=== PATIENT | female | born 1945 | race Caucasian/White ===

== ENCOUNTER 2017-04-25 09:57 | Emergency (ER) | payer MEDICARE ==
[~2017-04-25] VITALS: Ht 165.1 cm; Wt 88.9 kg
[~2017-04-25 09:57] MED LIST: ACEBUTOLOL HCL200 MG PO; ASPIRIN81 M1 PO; MAXIMUM DAILY1 EACH PO; ULTRAM50 MG PO; ZESTORETIC 20-1 EACH PO
[2017-04-25] MEDS ORDERED: SODIUM CHLORIDE 0.9% 1000ML 1,000 ML IV STA (11:00)
[2017-04-25] MEDS ORDERED: ONDANSETRON HCL INJ 2 MG/ML VIAL IV STA (11:00)
[2017-04-25 12:16] LABS: BASOPHILS % 0.4 % (0.0-1.0); EOSINOPHILS % 0.6 % (0.0-6.0); HEMATOCRIT 43.8 % (34.2-44.1); HEMOGLOBIN 14.7 g/dL (12.0-16.0); LYMPHOCYTES # (AUTO) 0.9 (1.0-3.2); LYMPHOCYTES % 12.2 % (18.0-39.1); MEAN CORPUSCULAR HEMOGLOBIN 30.9 pg (28-32); MEAN CORPUSCULAR HGB CONC 33.6 g/dL (31-35); MEAN CORPUSCULAR VOLUME 92.2 fL (81-99); MONOCYTES # (AUTO) 0.6 (0.2-0.8); NEUTROPHILS # (AUTO) 5.7 (2.1-6.9); NEUTROPHILS % 78.2 % (38.7-80.0); PLATELET COUNT 261 x10e3/uL (140-360); RED BLOOD COUNT 4.75 x10e6/uL (3.6-5.1); RED CELL DISTRIBUTION WIDTH 12.5 % (11.7-14.4)
[2017-04-25 12:18] LABS: BILIRUBIN,URINE NEGATIVE (NEGATIVE); KETONES,URINE NEGATIVE (NEGATIVE); LEUKOCYTE ESTERASE ,URINE NEGATIVE (NEGATIVE); NITRITE,URINE NEGATIVE (NEGATIVE); URINE UROBILINOGEN 0.2 mg/dL (0.2 - 1)
[2017-04-25 12:21] LABS: CLARITY,URINE SL CLOUDY (CLEAR); COLOR,URINE YELLOW (YELLOW); PROTEIN,URINE DIPSTICK 1+ (NEGATIVE)
[2017-04-25 12:25] LABS: ALANINE AMINOTRANSFERASE 18 IU/L (0-55); ALBUMIN 3.8 g/dL (3.5-5.0); ALBUMIN/GLOBULIN RATIO 1.1 (0.8-2.0); ALKALINE PHOSPHATASE 82 IU/L (40-150); ANION GAP 14.2 mmol/L (8-16); BLOOD UREA NITROGEN 18 mg/dL (7-26); BUN/CREATININE RATIO 20 (6-25); CALCIUM 9.1 mg/dL (8.4-10.2); CARBON DIOXIDE 24 mmol/L (22-29); CHLORIDE 100 mmol/L (98-107); CREATININE, SERUM 0.91 mg/dL (0.57-1.11); EST GLOMERULAR FILTRATION RATE > 60 ML/MIN (60-); GLUCOSE 171 mg/dL (74-118); LIPASE 33 U/L (8-78); POTASSIUM 3.2 mmol/L (3.5-5.1); SODIUM 135 mmol/L (136-145)
--- NOTE | 2017-04-25 12:29 | Diagnostic Imaging Report ---
PROCEDURE: Frontal and lateral views of the chest. COMPARISON: Patients [facility], , CHEST SINGLE (PORTABLE), 07/16/2016, 17:52. INDICATIONS: COUGH FINDINGS: Lines/tubes: None. Lungs: The lungs are well inflated and clear. There is no evidence of pneumonia or pulmonary edema. Pleura: There is no pleural effusion or pneumothorax. Heart and mediastinum: The heart and the mediastinum are normal. Bones: No acute bony abnormality. IMPRESSION: 1. No acute cardiopulmonary abnormalities. Sánchez Jules M.D. Dictated by: Sánchez Jules M.D. on 04/25/2017 at 12:38 Electronically approved by: Sánchez Jules M.D. on 04/25/2017 at 12:38
[2017-04-25 12:35] LABS: EPITHELIAL CELLS,URINE RARE /LPF; RBC,URINE 0-5 /HPF (0-5)
[2017-04-25 12:36] LABS: MUCUS,URINE RARE (RARE)
[2017-04-25 12:39] LABS: CREATINE KINASE MB 0.7 ng/mL (0.00-5.00); TROPONIN I 0.002 ng/mL (0-0.300)
[2017-04-25] MEDS ORDERED: ZOFRAN4 MG SL (13:45)
[2017-04-25 14:09] VITALS: BP 151/88
== END 2017-04-25 14:30 | disposition home or self-care (01) ==
LOC: ER 09:57
DX: R50.9 Fever, unspecified (principal); R05 Cough; R11.2 Nausea with vomiting, unspecified; R19.7 Diarrhea, unspecified; K52.9 Noninfective gastroenteritis and colitis, unspecified; I10 Essential (primary) hypertension; I48.91 Unspecified atrial fibrillation
CPT/HCPCS: 36415; 71020; 80053; 81001; 82550; 82553; 83690; 84484; 85025; 87400; 93005; 99284; J2405; J7030

== ENCOUNTER → 2017-12-05 | Outpatient (CLI) | payer MEDICARE ==
[~2017-12-05] MED LIST changes: +ZOFRAN4 MG SL
--- NOTE | 2017-12-05 15:40 | Diagnostic Imaging Report ---
EXAM: SINUSES (PARANASAL)MIN 3VIEWS DATE: 12/05/2017 3:03 PM INDICATION: Fall. Left facial/sinus pain. COMPARISON: None FINDINGS: Visualized maxillary, left frontal, and ethmoid sinuses as well as mastoid air cells are clear. No significant mucosal thickening or air-fluid level identified. IMPRESSION: No distinct sinus disease. If concern is present for facial fracture, maxillofacial CT would be recommended. Signed by: Dr. Yang Pratt MD on 12/05/2017 3:37 PM
== END ==
LOC: RAD 14:43
PROVIDERS: ATTEND Family Medicine
DX: R52 Pain, unspecified (principal); W18.39XA Other fall on same level, initial encounter
CPT/HCPCS: 70220

== ENCOUNTER 2020-03-28 08:19 | Emergency (ER) | payer MEDICARE, OTHER ==
[~2020-03-28] VITALS: Ht 165.1 cm; Wt 88.9 kg
[2020-03-28] MEDS ORDERED: KETOROLAC TROMETHAMINE 30 MG/ML VIAL IV STA (08:37)
[2020-03-28 09:04] LABS: BASOPHILS % 0.3 % (0.0-1.0); EOSINOPHILS # (AUTO) 0.2 (0.0-0.4); EOSINOPHILS % 1.4 % (0.0-6.0); HEMATOCRIT 44.3 % (34.2-44.1); HEMOGLOBIN 14.5 g/dL (12.0-16.0); LYMPHOCYTES # (AUTO) 1.6 (1.0-3.2); LYMPHOCYTES % 12.8 % (18.0-39.1); MEAN CORPUSCULAR HEMOGLOBIN 30.9 pg (28-32); MEAN CORPUSCULAR HGB CONC 32.7 g/dL (31-35); MEAN CORPUSCULAR VOLUME 94.3 fL (81-99); MONOCYTES # (AUTO) 0.8 (0.2-0.8); MONOCYTES % 6.1 % (4.4-11.3); NEUTROPHILS # (AUTO) 9.8 (2.1-6.9); NEUTROPHILS % 78.9 % (38.7-80.0); PLATELET COUNT 277 x10e3/uL (140-360); RED CELL DISTRIBUTION WIDTH 12.6 % (11.7-14.4)
[2020-03-28 09:09] LABS: CLARITY,URINE CLEAR (CLEAR); COLOR,URINE YELLOW (YELLOW); LEUKOCYTE ESTERASE ,URINE TRACE (NEGATIVE)
[2020-03-28 09:10] LABS: KETONES,URINE NEGATIVE (NEGATIVE); NITRITE,URINE NEGATIVE (NEGATIVE); PROTEIN,URINE DIPSTICK TRACE (NEGATIVE); URINE UROBILINOGEN 0.2 mg/dL (0.2 - 1)
[2020-03-28] MEDS ORDERED: SODIUM CHLORIDE 0.9% 50ML 50 ML ONE (09:15)
[2020-03-28 09:16] LABS: BACTERIA,URINE RARE /HPF; EPITHELIAL CELLS,URINE FEW /LPF
[2020-03-28] MEDS ORDERED: IOPAMIDOL 370 MG/ML 200 ML INFUS..BTL INJ ONE (09:16)
[2020-03-28 09:26] LABS: ALBUMIN 4.2 g/dL (3.5-5.0); ALBUMIN/GLOBULIN RATIO 1.2 (0.8-2.0); ANION GAP 15.4 mmol/L (8-16); CALCIUM 9.4 mg/dL (8.4-10.2); CREATININE, SERUM 0.99 mg/dL (0.57-1.11); POTASSIUM 3.4 mmol/L (3.5-5.1)
[2020-03-28] MEDS ORDERED: SODIUM CHLORIDE 0.9% 500ML 500 ML IV STA (09:29)
[2020-03-28] MEDS ORDERED: ULTRAM50 MG PO (11:10)
== END 2020-03-28 11:20 | disposition home or self-care (01) ==
LOC: ER 08:25
DX: R10.9 Unspecified abdominal pain (principal); K57.30 Diverticulosis of large intestine without perforation or abscess without bleeding; I48.92 Unspecified atrial flutter; I10 Essential (primary) hypertension; I48.91 Unspecified atrial fibrillation
CPT/HCPCS: 36415; 74177; 80053; 81001; 83690; 85025; 93005; 99283; J1885; J7040; Q9967

== ENCOUNTER 2021-06-10 10:46 | Observation (INO) | payer MEDICARE ==
[~2021-06-10] VITALS: Ht 152.4 cm; Wt 76.7 kg
[2021-06-10] MEDS ORDERED: DILTIAZEM HCL 5 MG/ML 5 ML VIAL IV ONE (11:15)
[2021-06-10] MEDS ORDERED: DILTIAZEM HCL VIAL 5 ML ONE (11:26)
[2021-06-10 11:30] LABS: BASOPHILS # (AUTO) 0.1 (0.0-0.1); BASOPHILS % 0.8 % (0.0-1.0); EOSINOPHILS # (AUTO) 0.2 (0.0-0.4); EOSINOPHILS % 2.7 % (0.0-6.0); HEMATOCRIT 44.9 % (34.2-44.1); HEMOGLOBIN 14.8 g/dL (12.0-16.0); LYMPHOCYTES # (AUTO) 1.6 (1.0-3.2); LYMPHOCYTES % 25.3 % (18.0-39.1); MEAN CORPUSCULAR HEMOGLOBIN 31.2 pg (28-32); MEAN CORPUSCULAR VOLUME 94.5 fL (81-99); MONOCYTES # (AUTO) 0.4 (0.2-0.8); MONOCYTES % 6.7 % (4.4-11.3); NEUTROPHILS % 64.2 % (38.7-80.0); PLATELET COUNT 267 x10e3/uL (140-360); RED BLOOD COUNT 4.75 x10e6/uL (3.6-5.1); RED CELL DISTRIBUTION WIDTH 12.9 % (11.7-14.4)
[2021-06-10 11:41] LABS: INR 0.97; PROTHROMBIN TIME 13.8 seconds (11.9-14.5)
[2021-06-10 11:42] LABS: PARTIAL THROMBOPLASTIN TIME 27.4 seconds (23.8-35.5)
[2021-06-10 11:51] LABS: ALBUMIN/GLOBULIN RATIO 1.2 (0.8-2.0); ANION GAP 13.7 mmol/L (8-16); CALCIUM 9.7 mg/dL (8.4-10.2); CREATININE, SERUM 0.87 mg/dL (0.57-1.11); POTASSIUM 3.7 mmol/L (3.5-5.1)
[2021-06-10] MEDS ORDERED: ENOXAPARIN INJ 80 MG/0.8 ML SYR SC SCH (12:00)
[2021-06-10] MEDS ORDERED: ASPIRIN 81 MG CHEW TAB PO ONE (12:00)
[2021-06-10] MEDS ORDERED: ASPIRIN 81 MG CHEW TAB ONE ×2 (12:10→12:11)
[2021-06-10] MEDS ORDERED: ACETAMINOPHEN 325 MG TAB PO PRN (14:30)
[2021-06-10] MEDS ORDERED: METOPROLOL TARTRATE INJ 1 MG/ML VIAL IV PRN (14:30)
[2021-06-10] MEDS ORDERED: ONDANSETRON HCL INJ 2MG/ML 2ML 2 MG/ML VIAL IV PRN (14:30)
[2021-06-10] MEDS ORDERED: POLYETHYLENE GLYCOL 3350 17 GM PACK PO PRN (14:30)
[2021-06-10 15:24] VITALS: BP 138/94
[2021-06-10] MEDS ORDERED: ASPIRIN81 MG PO (15:55)
[2021-06-10] MEDS: FAMOTIDINE 20 MG TAB PO SCH (16:21)
[2021-06-10] MEDS: DOCUSATE SODIUM 100 MG CAP PO SCH (16:21)
[2021-06-10] MEDS: METOPROLOL SUCCINATE 25 MG TAB XL PO SCH (16:29)
[2021-06-10 16:36] VITALS: BP 138/94
[2021-06-10 16:55] VITALS: BP 138/94
[2021-06-10] MEDS ORDERED: LISINOPRIL-HCT1 EAC2 PO (17:35)
[2021-06-10 20:00] VITALS: BP 141/71
[2021-06-10] MEDS: APIXABAN 5 MG TABLET PO SCH (20:59)
[2021-06-11] VITALS: BP 131/82
[2021-06-11 04:00] VITALS: BP 129/79
[2021-06-11] MEDS: METOPROLOL SUCCINATE 25 MG TAB XL PO SCH (05:27)
[2021-06-11 06:06] LABS: BASOPHILS # (AUTO) 0.1 (0.0-0.1); EOSINOPHILS # (AUTO) 0.2 (0.0-0.4); EOSINOPHILS % 2.9 % (0.0-6.0); HEMATOCRIT 44.1 % (34.2-44.1); HEMOGLOBIN 14.7 g/dL (12.0-16.0); LYMPHOCYTES # (AUTO) 1.9 (1.0-3.2); LYMPHOCYTES % 32.1 % (18.0-39.1); MEAN CORPUSCULAR HEMOGLOBIN 31.3 pg (28-32); MEAN CORPUSCULAR HGB CONC 33.3 g/dL (31-35); MONOCYTES # (AUTO) 0.5 (0.2-0.8); MONOCYTES % 8.1 % (4.4-11.3); NEUTROPHILS # (AUTO) 3.2 (2.1-6.9); NEUTROPHILS % 55.6 % (38.7-80.0); PLATELET COUNT 263 x10e3/uL (140-360); RED BLOOD COUNT 4.69 x10e6/uL (3.6-5.1); RED CELL DISTRIBUTION WIDTH 12.9 % (11.7-14.4)
[2021-06-11 06:27] LABS: ANION GAP 12.7 mmol/L (8-16); CALCIUM 9.4 mg/dL (8.4-10.2); CHOL/HDL RATIO 3.9 (3.0-3.6); CREATININE, SERUM 0.87 mg/dL (0.57-1.11); MAGNESIUM 1.9 MG/DL (1.3-2.1); PHOSPHORUS 2.7 MG/DL (2.3-4.7); POTASSIUM 3.7 mmol/L (3.5-5.1)
[2021-06-11 06:36] LABS: CREATINE KINASE MB 0.8 ng/mL (0-5.0)
[2021-06-11 06:49] LABS: THYROID STIMULATING HORMONE 0.956 uIU/mL (0.350-4.940)
[2021-06-11] MEDS: FAMOTIDINE 20 MG TAB PO SCH ×2 (07:30→16:25)
[2021-06-11 07:49] VITALS: BP 129/76
[2021-06-11 08:00] VITALS: BP 129/76
[2021-06-11] MEDS ORDERED: LISINOPRIL 10 MG TAB PO SCH (09:00)
[2021-06-11] MEDS ORDERED: METOPROLOL SUCCINATE 25 MG TAB XL PO SCH (09:00)
[2021-06-11] MEDS: APIXABAN 5 MG TABLET PO SCH ×2 (09:49→16:25)
[2021-06-11] MEDS: DOCUSATE SODIUM 100 MG CAP PO SCH (09:49)
[2021-06-11 12:11] VITALS: BP 128/81
[2021-06-11] MEDS ORDERED: METOPROLOL SUCC25 MG PO (15:57)
[2021-06-11] MEDS ORDERED: ELIQUIS5 MG PO (15:57)
[2021-06-11 16:21] VITALS: BP 121/69
== END 2021-06-11 16:35 | disposition home or self-care (01) ==
LOC: ER 11:27 → ERHOLD 12:26 → INTOOBSV 12:26 → MED/SURG2 15:46
PROVIDERS: ADMIT Internal Medicine; ATTEND Internal Medicine
DX: I48.0 Paroxysmal atrial fibrillation (principal); I11.9 Hypertensive heart disease without heart failure; Z79.01 Long term (current) use of anticoagulants; E66.9 Obesity, unspecified; Z68.32 Body mass index [BMI] 32.0-32.9, adult; Z20.822 Contact with and (suspected) exposure to COVID-19
CPT/HCPCS: 36415 ×2; 71045; 80048; 80053; 80061; 82550 ×2; 82553 ×2; 83036; 83735; 83880; 84100; 84443; 84484 ×2; 85025 ×2; 85610; 85730; 93005 ×2; 93306; 94799 ×2; 99284; G0378 ×2; J1650; J2405; U0002

== ENCOUNTER 2021-06-26 20:17 | Emergency (ER) | payer MEDICARE ==
[~2021-06-26] VITALS: Ht 160 cm; Wt 76.7 kg
[~2021-06-26 20:17] MED LIST changes: +ASPIRIN81 MG PO; +ELIQUIS5 MG PO; +LISINOPRIL-HCT1 EAC2 PO; +METOPROLOL SUCC25 MG PO
[2021-06-26] MEDS ORDERED: ONDANSETRON HCL INJ 2MG/ML 2ML 2 MG/ML VIAL IV STA (20:56)
[2021-06-26 21:30] LABS: COLOR,URINE RED (YELLOW)
[2021-06-26 21:31] LABS: CLARITY,URINE CLOUDY (CLEAR)
[2021-06-26 21:34] LABS: BASOPHILS # (AUTO) 0.1 (0.0-0.1); BASOPHILS % 0.6 % (0.0-1.0); EOSINOPHILS # (AUTO) 0.2 (0.0-0.4); EOSINOPHILS % 2.8 % (0.0-6.0); HEMATOCRIT 38.6 % (34.2-44.1); HEMOGLOBIN 12.4 g/dL (12.0-16.0); LYMPHOCYTES # (AUTO) 1.5 (1.0-3.2); LYMPHOCYTES % 19.4 % (18.0-39.1); MEAN CORPUSCULAR HEMOGLOBIN 30.3 pg (28-32); MEAN CORPUSCULAR HGB CONC 32.1 g/dL (31-35); MEAN CORPUSCULAR VOLUME 94.4 fL (81-99); MONOCYTES # (AUTO) 0.6 (0.2-0.8); MONOCYTES % 7.5 % (4.4-11.3); NEUTROPHILS # (AUTO) 5.5 (2.1-6.9); NEUTROPHILS % 69.2 % (38.7-80.0); PLATELET COUNT 293 x10e3/uL (140-360); RED BLOOD COUNT 4.09 x10e6/uL (3.6-5.1); RED CELL DISTRIBUTION WIDTH 12.8 % (11.7-14.4)
[2021-06-26 21:37] LABS: KETONES,URINE TRACE (NEGATIVE); LEUKOCYTE ESTERASE ,URINE NEGATIVE (NEGATIVE); NITRITE,URINE NEGATIVE (NEGATIVE); PROTEIN,URINE DIPSTICK >=300 (NEGATIVE); URINE UROBILINOGEN 1 mg/dL (0.2 - 1)
[2021-06-26 21:38] LABS: RBC,URINE >50 /HPF (0-5)
[2021-06-26 21:42] LABS: INR 1.55; PROTHROMBIN TIME 19.9 seconds (11.9-14.5)
[2021-06-26 21:44] LABS: BACTERIA,URINE MANY /HPF; EPITHELIAL CELLS,URINE FEW /LPF
[2021-06-26 21:47] LABS: CALCIUM 9.4 mg/dL (8.4-10.2); CREATININE, SERUM 0.98 mg/dL (0.57-1.11)
[2021-06-26 23:18] VITALS: BP 185/95
== END 2021-06-26 23:20 | disposition home or self-care (01) ==
LOC: ER 20:22
DX: R31.9 Hematuria, unspecified (principal); N39.0 Urinary tract infection, site not specified; R11.2 Nausea with vomiting, unspecified; I10 Essential (primary) hypertension; I48.91 Unspecified atrial fibrillation
CPT/HCPCS: 36415; 74176; 80048; 81001; 85025; 85610; 85730; 87086; 87186; 99284; J2405

== ENCOUNTER 2024-01-24 20:06 | Inpatient (IN) | payer MEDICARE ==
[~2024-01-24] VITALS: Ht 160 cm; Wt 95.9 kg
[2024-01-24 20:26] VITALS: RESP 22
[2024-01-24 20:40] LABS: BASOPHILS % 0.3 % (0.0-1.0); EOSINOPHILS # (AUTO) 0.1 (0.0-0.4); EOSINOPHILS % 1.3 % (0.0-6.0); HEMATOCRIT 45.6 % (34.2-44.1); LYMPHOCYTES # (AUTO) 0.5 (1.0-3.2); LYMPHOCYTES % 5.5 % (18.0-39.1); MEAN CORPUSCULAR HEMOGLOBIN 30.8 pg (28-32); MEAN CORPUSCULAR HGB CONC 32.9 g/dL (31-35); MEAN CORPUSCULAR VOLUME 93.6 fL (81-99); MONOCYTES # (AUTO) 0.8 (0.2-0.8); MONOCYTES % 8.7 % (4.4-11.3); NEUTROPHILS # (AUTO) 7.2 (2.1-6.9); PLATELET COUNT 207 x10e3/uL (140-360); RED BLOOD COUNT 4.87 x10e6/uL (3.6-5.1); RED CELL DISTRIBUTION WIDTH 13.1 % (11.7-14.4); WHITE BLOOD COUNT 8.62 x10e3/uL (4.8-10.8)
[2024-01-24] MEDS: ACETAMINOPHEN 325 MG TAB PO STA (20:54)
[2024-01-24] MEDS: SODIUM CHLORIDE 0.9% 1000ML 1,000 ML IV STA ×2 (20:55)
[2024-01-24 21:00] LABS: ALANINE AMINOTRANSFERASE 14 IU/L (0-55); ALBUMIN/GLOBULIN RATIO 1.1 (0.8-2.0); ALKALINE PHOSPHATASE 78 IU/L (40-150); ANION GAP 19.3 mmol/L (8-16); BILIRUBIN,TOTAL 2.4 mg/dL (0.2-1.2); BLOOD UREA NITROGEN 16 mg/dL (7-26); BUN/CREATININE RATIO 18 (6-25); CALCIUM 9.7 mg/dL (8.4-10.2); CARBON DIOXIDE 25 mmol/L (22-29); CHLORIDE 98 mmol/L (98-107); CREATINE KINASE 117 IU/L (29-168); CREATININE, SERUM 0.91 mg/dL (0.57-1.11); EST GLOMERULAR FILTRATION RATE 65 ML/MIN (>=60); GLUCOSE 113 mg/dL (74-118); SODIUM 139 mmol/L (136-145); TOTAL PROTEIN 7.5 g/dL (6.5-8.1)
[2024-01-24 21:02] LABS: POTASSIUM 3.3 mmol/L (3.5-5.1)
[2024-01-24 21:06] LABS: TROPONIN I < 0.05 ng/mL (0.0-0.40)
[2024-01-24 21:09] LABS: INFLUENZAE A&B ANTIGEN (RAPID) NEGATIVE (NEGATIVE); RESPIRATORY SYNC. VIRUS NEGATIVE (NEGATIVE)
[2024-01-24] MEDS: SODIUM CHLORIDE 0.9% 1000ML 1,000 ML IV SCH (22:00)
[2024-01-24] MEDS ORDERED: ONDANSETRON HCL INJ 2MG/ML 2ML 2 MG/ML VIAL IV PRN (22:00)
[2024-01-24] MEDS ORDERED: Morphine 4mg INJECTION 4 MG/ML INJ IV PRN (22:00)
[2024-01-24 22:20] LABS: BILIRUBIN,URINE SMALL (NEGATIVE); CLARITY,URINE CLEAR (CLEAR); COLOR,URINE AMBER (YELLOW); GLUCOSE, URINE NEGATIVE (NEGATIVE); KETONES,URINE TRACE (NEGATIVE); LEUKOCYTE ESTERASE ,URINE NEGATIVE (NEGATIVE); NITRITE,URINE NEGATIVE (NEGATIVE); PH,URINE 6 (5 - 7); PROTEIN,URINE DIPSTICK >=300 (NEGATIVE); URINE UROBILINOGEN 1 mg/dL (0.2 - 1)
[2024-01-24 22:39] VITALS: PULSE 86; TEMP 98.8
[2024-01-24] MEDS: HYDRALAZINE HCL 20 MG/ML VIAL IV PRN (22:54)
[2024-01-24 23:04] VITALS: PULSE 81; RESP 20; O2SAT 97
[2024-01-24 23:15] LABS: BACTERIA,URINE MANY /HPF; EPITHELIAL CELLS,URINE FEW /LPF; WBC,URINE (MAN) 0-5 /HPF (0-5); YEAST,URINE FEW
[2024-01-24 23:30] VITALS: BP 164/76; PULSE 81; RESP 20; TEMP 98.5; O2SAT 97
[2024-01-24 23:46] VITALS: BP 164/76; PULSE 81; RESP 22; TEMP 98.5; O2SAT 97
[2024-01-25] VITALS (12 sets, daily range): BP systolic 147–178; BP diastolic 78–100; PULSE 71–89; RESP 17–21; TEMP 97.7–98.5; O2SAT 94–100
[2024-01-25 05:26] LABS: BASOPHILS % 0.5 % (0.0-1.0); EOSINOPHILS # (AUTO) 0.1 (0.0-0.4); EOSINOPHILS % 1.3 % (0.0-6.0); HEMATOCRIT 44.9 % (34.2-44.1); HEMOGLOBIN 14.1 g/dL (12.0-16.0); LYMPHOCYTES # (AUTO) 0.7 (1.0-3.2); MEAN CORPUSCULAR HEMOGLOBIN 30.2 pg (28-32); MEAN CORPUSCULAR HGB CONC 31.4 g/dL (31-35); MEAN CORPUSCULAR VOLUME 96.1 fL (81-99); MONOCYTES # (AUTO) 0.8 (0.2-0.8); NEUTROPHILS # (AUTO) 4.5 (2.1-6.9); NEUTROPHILS % 72.9 % (38.7-80.0); PLATELET COUNT 168 x10e3/uL (140-360); RED BLOOD COUNT 4.67 x10e6/uL (3.6-5.1); RED CELL DISTRIBUTION WIDTH 12.9 % (11.7-14.4); WHITE BLOOD COUNT 6.16 x10e3/uL (4.8-10.8)
[2024-01-25 05:57] LABS: ALBUMIN 3.6 g/dL (3.5-5.0); ALBUMIN/GLOBULIN RATIO 1.2 (0.8-2.0); ANION GAP 15.9 mmol/L (8-16); CALCIUM 9.1 mg/dL (8.4-10.2); CREATININE, SERUM 0.78 mg/dL (0.57-1.11); TOTAL PROTEIN 6.7 g/dL (6.5-8.1)
[2024-01-25 05:58] LABS: TROPONIN I < 0.05 ng/mL (0.0-0.40)
[2024-01-25 06:01] LABS: POTASSIUM 2.9 mmol/L (3.5-5.1)
[2024-01-25 06:48] LABS: CREATINE KINASE 124 IU/L (29-168)
[2024-01-25] MEDS ORDERED: ALBUTEROL/IPRATROPIUM 3 ML NEB NEB PRN (08:15)
[2024-01-25] MEDS: ALBUTEROL/IPRATROPIUM 3 ML NEB NEB SCH (09:24)
[2024-01-25] MEDS: KCL 20MEQ/.9 SOD CHL 1,000 ML IV SCH (09:38)
[2024-01-25] MEDS: LISINOPRIL 10 MG TAB PO SCH (09:39)
[2024-01-25] MEDS: LORATADINE 10 MG TAB PO SCH (09:40)
[2024-01-25] MEDS: METOPROLOL SUCCINATE 25 MG TAB XL PO SCH (09:40)
[2024-01-25] MEDS: GUAIFENESIN 600 MG TAB PO SCH (09:40)
[2024-01-25] MEDS: POTASSIUM CHLORIDE 10MEQ EA PO SCH ×2 (09:40→11:49)
[2024-01-25] MEDS: APIXABAN 5 MG TABLET PO SCH (09:40)
[2024-01-25] MEDS: BENZONATATE 100 MG CAP PO PRN (16:07)
[2024-01-25 16:58] LABS: CREATINE KINASE 109 IU/L (29-168)
[2024-01-25 17:11] LABS: TROPONIN I < 0.001 ng/mL (0-0.300)
[2024-01-25] MEDS: HYDRALAZINE HCL 20 MG/ML VIAL IV PRN (20:50)
[2024-01-26] VITALS (12 sets, daily range): BP systolic 163–183; BP diastolic 65–108; PULSE 76–98; RESP 16–18; TEMP 97.8–98.5; O2SAT 96–99
[2024-01-26 07:52] LABS: BASOPHILS % 0.5 % (0.0-1.0); EOSINOPHILS # (AUTO) 0.2 (0.0-0.4); EOSINOPHILS % 3.5 % (0.0-6.0); HEMATOCRIT 42.7 % (34.2-44.1); HEMOGLOBIN 13.6 g/dL (12.0-16.0); LYMPHOCYTES # (AUTO) 0.9 (1.0-3.2); LYMPHOCYTES % 16.6 % (18.0-39.1); MEAN CORPUSCULAR HEMOGLOBIN 30.6 pg (28-32); MEAN CORPUSCULAR HGB CONC 31.9 g/dL (31-35); MONOCYTES # (AUTO) 0.7 (0.2-0.8); MONOCYTES % 13.3 % (4.4-11.3); NEUTROPHILS # (AUTO) 3.6 (2.1-6.9); NEUTROPHILS % 65.6 % (38.7-80.0); PLATELET COUNT 192 x10e3/uL (140-360); RED BLOOD COUNT 4.45 x10e6/uL (3.6-5.1); RED CELL DISTRIBUTION WIDTH 13.4 % (11.7-14.4); WHITE BLOOD COUNT 5.47 x10e3/uL (4.8-10.8)
[2024-01-26 08:22] LABS: ANION GAP 12.8 mmol/L (8-16); CALCIUM 8.8 mg/dL (8.4-10.2); CREATININE, SERUM 0.72 mg/dL (0.57-1.11); POTASSIUM 3.8 mmol/L (3.5-5.1)
[2024-01-26 08:40] LABS: MAGNESIUM 1.7 MG/DL (1.3-2.1); PHOSPHORUS 2.3 MG/DL (2.3-4.7)
[2024-01-26] MEDS: METOPROLOL SUCCINATE 25 MG TAB XL PO ONE (14:03)
[2024-01-26] MEDS: METOPROLOL SUCCINATE 50 MG TAB XL PO SCH (16:58)
[2024-01-26] MEDS: METOPROLOL TARTRATE INJ 1 MG/ML VIAL IV PRN (21:20)
[2024-01-27] VITALS (10 sets, daily range): BP systolic 182–201; BP diastolic 82–97; PULSE 79–88; RESP 16–19; TEMP 97.9–98.8; O2SAT 96–100
[2024-01-27] MEDS: METOPROLOL TARTRATE 50 MG TAB PO SCH (09:26)
[2024-01-27] MEDS: NIFEDIPINE CR 30 MG TAB PO SCH ×2 (09:26→16:51)
[2024-01-27] MEDS: LOSARTAN POTASSIUM 25 MG TAB PO SCH (16:50)
[2024-01-27] MEDS: LABETALOL HCL 5 MG/ML 20ML VIAL IV STA (20:13)
[2024-01-28] VITALS (10 sets, daily range): BP systolic 128–161; BP diastolic 54–97; PULSE 68–99; RESP 16–19; TEMP 97.4–98.9; O2SAT 96–99
[2024-01-28 05:31] LABS: ANION GAP 15.6 mmol/L (8-16); CALCIUM 9.3 mg/dL (8.4-10.2); CREATININE, SERUM 0.77 mg/dL (0.57-1.11); POTASSIUM 3.6 mmol/L (3.5-5.1)
[2024-01-29] VITALS (8 sets, daily range): BP systolic 113–156; BP diastolic 62–96; PULSE 73–85; RESP 17–22; TEMP 97.5–98.4; O2SAT 94–99
== END 2024-01-29 16:19 | disposition home or self-care (01) | DRG 690 ==
LOC: ER 20:12 → ERHOLD 21:50 → MED/SURG 23:09 → OBSVTOIN 01-26 09:26
PROVIDERS: ADMIT Internal Medicine; ATTEND Internal Medicine
DX: N39.0 Urinary tract infection, site not specified (principal); E87.20 Acidosis, unspecified; A08.39 Other viral enteritis; E87.1 Hypo-osmolality and hyponatremia; I16.0 Hypertensive urgency; I48.91 Unspecified atrial fibrillation; E86.0 Dehydration; I10 Essential (primary) hypertension; J06.9 Acute upper respiratory infection, unspecified; R53.81 Other malaise; R53.1 Weakness; Z11.52 Encounter for screening for COVID-19; Z79.01 Long term (current) use of anticoagulants; Z79.82 Long term (current) use of aspirin; Z90.710 Acquired absence of both cervix and uterus; Z90.49 Acquired absence of other specified parts of digestive tract
CPT/HCPCS: 36415; 70450; 70551; 71045; 71250; 80048; 80053; 81001; 82550; 83605; 83735; 83880; 84100; 84484; 85025; 87040; 87086; 87400; 87420; 93005; 94640; 94799; 99284; G0378; J0360; J0696; J2543; J7030; U0002

== ENCOUNTER 2024-04-10 18:40 | Inpatient (IN) | payer MEDICARE ==
[~2024-04-10] VITALS: Ht 160 cm; Wt 89.8 kg
[2024-04-10 18:47] VITALS: TEMP 98.3
[2024-04-10 19:02] LABS: BASOPHILS # (AUTO) 0.1 (0.0-0.1); BASOPHILS % 0.7 % (0.0-1.0); EOSINOPHILS # (AUTO) 0.1 (0.0-0.4); EOSINOPHILS % 1.9 % (0.0-6.0); HEMATOCRIT 46.8 % (34.2-44.1); HEMOGLOBIN 14.8 g/dL (12.0-16.0); LYMPHOCYTES # (AUTO) 1.4 (1.0-3.2); LYMPHOCYTES % 18.9 % (18.0-39.1); MEAN CORPUSCULAR HEMOGLOBIN 30.8 pg (28-32); MEAN CORPUSCULAR HGB CONC 31.6 g/dL (31-35); MEAN CORPUSCULAR VOLUME 97.5 fL (81-99); MONOCYTES # (AUTO) 0.6 (0.2-0.8); MONOCYTES % 7.8 % (4.4-11.3); NEUTROPHILS # (AUTO) 5.3 (2.1-6.9); NEUTROPHILS % 70.4 % (38.7-80.0); PLATELET COUNT 243 x10e3/uL (140-360); RED CELL DISTRIBUTION WIDTH 12.9 % (11.7-14.4); WHITE BLOOD COUNT 7.55 x10e3/uL (4.8-10.8)
[2024-04-10] MEDS: DIPHENHYDRAMINE HCL INJ 50 MG/ML VIAL IV STA (19:18)
[2024-04-10] MEDS: METOCLOPRAMIDE HCL 10 MG/2ML VIAL IV STA (19:18)
[2024-04-10] MEDS: SODIUM CHLORIDE 0.9% 1000ML 1,000 ML IV STA ×2 (19:18→19:19)
[2024-04-10] MEDS: KETOROLAC TROMETHAMINE 30 MG/ML VIAL IV STA (19:18)
[2024-04-10] MEDS: METHYLPREDNISOLONE SOD SUCC 125 MG/2ML VIAL IV STA (19:18)
[2024-04-10 19:27] LABS: ALBUMIN 4.7 g/dL (3.5-5.0); ALBUMIN/GLOBULIN RATIO 1.4 (0.8-2.0); ANION GAP 17.9 mmol/L (8-16); BILIRUBIN,TOTAL 1.5 mg/dL (0.2-1.2); CALCIUM 10.1 mg/dL (8.4-10.2); CREATININE, SERUM 1.02 mg/dL (0.57-1.11)
[2024-04-10 19:30] LABS: POTASSIUM 2.9 mmol/L (3.5-5.1)
[2024-04-10 19:32] LABS: TROPONIN I 0.019 ng/mL (0-0.300)
[2024-04-10] MEDS: POTASSIUM CHLORIDE 20 MEQ TAB CR PO STA (20:21)
[2024-04-10] MEDS: NICARDIPINE 20MG/200ML PREMIX 200 ML IV SCH (20:27)
[2024-04-10] MEDS: POTASSIUM CHLORIDE 20MEQ/100ML 100 ML IV STA (20:53)
[2024-04-10] MEDS ORDERED: TRAMADOL HCL 50 MG TAB PO PRN (21:00)
[2024-04-10] MEDS ORDERED: POLYETHYLENE GLYCOL 3350 17 GM PACK PO PRN (21:00)
[2024-04-10] MEDS ORDERED: GUAIFENESIN/DEXTROMETHORPHAN LIQD 5 ML UDC PO PRN (21:00)
[2024-04-10] MEDS ORDERED: MAGNESIUM/ALUMINUM/SIMETHICONE 30 ML UDC PO PRN (21:00)
[2024-04-10] MEDS ORDERED: ONDANSETRON HCL INJ 2MG/ML 2ML 2 MG/ML VIAL IV PRN (21:00)
[2024-04-10] MEDS ORDERED: ACETAMINOPHEN 325 MG TAB PO PRN (21:00)
[2024-04-10] MEDS ORDERED: MELATONIN 3 MG TAB PO PRN (21:00)
[2024-04-10] MEDS ORDERED: ACETAMIN/BUTALBITAL/CAFFEINE TAB PO PRN (21:15)
[2024-04-10 21:29] VITALS: PULSE 92; RESP 18
[2024-04-10 22:15] VITALS: BP 153/84; PULSE 101; RESP 20; O2SAT 98
[2024-04-10 22:45] VITALS: BP 153/84; PULSE 89
[2024-04-11] VITALS (51 sets, daily range): BP systolic 103–187; BP diastolic 61–109; PULSE 63–107; RESP 14–23; TEMP 98–99.6; O2SAT 96–100
[2024-04-11] MEDS: NICARDIPINE 20MG/200ML PREMIX 200 ML IV SCH ×2 (00:09→23:08)
[2024-04-11 06:45] LABS: BASOPHILS % 0.2 % (0.0-1.0); EOSINOPHILS % 0.3 % (0.0-6.0); HEMATOCRIT 44.7 % (34.2-44.1); HEMOGLOBIN 14.9 g/dL (12.0-16.0); LYMPHOCYTES # (AUTO) 0.6 (1.0-3.2); LYMPHOCYTES % 8.7 % (18.0-39.1); MEAN CORPUSCULAR HEMOGLOBIN 30.8 pg (28-32); MEAN CORPUSCULAR HGB CONC 33.3 g/dL (31-35); MEAN CORPUSCULAR VOLUME 92.4 fL (81-99); MONOCYTES % 0.6 % (4.4-11.3); NEUTROPHILS # (AUTO) 5.9 (2.1-6.9); NEUTROPHILS % 89.9 % (38.7-80.0); PLATELET COUNT 235 x10e3/uL (140-360); RED BLOOD COUNT 4.84 x10e6/uL (3.6-5.1); RED CELL DISTRIBUTION WIDTH 13.2 % (11.7-14.4); WHITE BLOOD COUNT 6.54 x10e3/uL (4.8-10.8)
[2024-04-11 06:57] LABS: POTASSIUM 3.4 mmol/L (3.5-5.1)
[2024-04-11 07:06] LABS: TROPONIN I 0.007 ng/mL (0-0.300)
[2024-04-11 07:25] LABS: ALBUMIN 4.3 g/dL (3.5-5.0); ALBUMIN/GLOBULIN RATIO 1.3 (0.8-2.0); BILIRUBIN,TOTAL 1.7 mg/dL (0.2-1.2); CALCIUM 9.6 mg/dL (8.4-10.2); CREATININE, SERUM 0.83 mg/dL (0.57-1.11); TOTAL PROTEIN 7.7 g/dL (6.5-8.1)
[2024-04-11 07:56] LABS: ANION GAP 21.4 mmol/L (8-16)
[2024-04-11 10:21] LABS: BASOPHILS % (MANUAL) 1 % (0-1.5); LYMPHOCYTES % (MANUAL) 3 % (19-48); MONOCYTES % (MANUAL) 1 % (3.4-9.0); NEUTROPHILS % (MANUAL) 95 % (40-74)
[2024-04-11 10:22] LABS: PLATELET ESTIMATE ADEQUATE; PLATELET MORPHOLOGY COMMENT NORMAL; RBC MORPHOLOGY COMMENT NORMAL
[2024-04-11] MEDS: METHYLPREDNISOLONE SOD SUCC 125 MG/2ML VIAL IV ONE (10:52)
[2024-04-11] MEDS: VALSARTAN 80 MG TAB PO SCH (10:53)
[2024-04-11] MEDS: APIXABAN 5 MG TABLET PO SCH (10:53)
[2024-04-11] MEDS: DOCUSATE SODIUM 100 MG CAP PO SCH (10:53)
[2024-04-11] MEDS: METOPROLOL TARTRATE 50 MG TAB PO SCH (10:53)
[2024-04-11 15:08] LABS: TROPONIN I 0.01 ng/mL (0-0.300)
[2024-04-11] MEDS: NIFEDIPINE CR 30 MG TAB PO SCH (20:03)
[2024-04-12] VITALS (45 sets, daily range): BP systolic 116–144; BP diastolic 54–104; PULSE 51–85; RESP 12–27; TEMP 97.9–98.2; O2SAT 90–100
[2024-04-13] VITALS (17 sets, daily range): BP systolic 125–152; BP diastolic 55–97; PULSE 66–82; RESP 14–27; TEMP 98–98.2; O2SAT 96–100
[2024-04-13] MEDS ORDERED: METOPROLOL TART50 MG PO (13:42)
[2024-04-13] MEDS ORDERED: NIFEDIPINE ER30 M1 PO (13:42)
[2024-04-13] MEDS ORDERED: DIOVAN80 MG PO (13:42)
[2024-04-13] MEDS ORDERED: DOCUSATE SODIU100 MG PO (13:42)
== END 2024-04-13 15:11 | disposition home or self-care (01) | DRG 305 ==
LOC: ER 18:46 → ERHOLD 20:02 → ICU 22:13
PROVIDERS: ADMIT Internal Medicine; ATTEND Internal Medicine
DX: I16.1 Hypertensive emergency (principal); N17.9 Acute kidney failure, unspecified; I67.4 Hypertensive encephalopathy; I12.9 Hypertensive chronic kidney disease with stage 1 through stage 4 chronic kidney disease, or unspecified chronic kidney disease; I48.0 Paroxysmal atrial fibrillation; N18.9 Chronic kidney disease, unspecified; E87.6 Hypokalemia; R53.1 Weakness; Z79.01 Long term (current) use of anticoagulants; E66.01 Morbid (severe) obesity due to excess calories; Z68.35 Body mass index [BMI] 35.0-35.9, adult; Z90.49 Acquired absence of other specified parts of digestive tract; Z90.710 Acquired absence of both cervix and uterus; Z88.8 Allergy status to other drugs, medicaments and biological substances
CPT/HCPCS: 36415; 70450; 71045; 80053; 82550; 83690; 83880; 84484; 85025; 93005; 93306; 99252; 99284; J1200; J1885; J2765; J2919; J3480; J7030